=== PATIENT | female | born 1995 | race Hispanic/Latino ===

== ENCOUNTER 2017-10-08 09:10 | Emergency (ER) | payer SELFPAY | END 2017-10-08 09:35 | disposition home or self-care (01) | LOC: EDH 09:10 | DX: J06.9 Acute upper respiratory infection, unspecified (principal); K21.9 Gastro-esophageal reflux disease without esophagitis; Z87.891 Personal history of nicotine dependence | CPT/HCPCS: 99281 ==

== ENCOUNTER 2019-01-10 11:04 | Emergency (ER) | payer SELFPAY ==
[2019-01-10] MEDS ORDERED: ONDANSETRON ODT 4 MG TAB ONE (12:02)
[2019-01-10] MEDS ORDERED: LIDOCAINE HCL-MPF 1% 2ML VIAL ONE (12:02)
[2019-01-10] MEDS ORDERED: CEFTRIAXONE SODIUM 1 GM ONE (12:02)
[2019-01-10 12:28] LABS: RAPID GROUP A STREP NEGATIVE (NEGATIVE)
== END 2019-01-10 13:36 | disposition home or self-care (01) ==
LOC: EDH 11:04
DX: J02.9 Acute pharyngitis, unspecified (principal); K21.9 Gastro-esophageal reflux disease without esophagitis; Z98.890 Other specified postprocedural states
CPT/HCPCS: 87804 ×2; 87880; 96372; 99284; J0696; J3490

== ENCOUNTER 2019-04-24 12:41 | Emergency (ER) | payer BC, OTHER ==
[2019-04-24] MEDS ORDERED: IBUPROFEN 600 MG TABLET ONE (13:50)
== END 2019-04-24 14:56 | disposition home or self-care (01) ==
LOC: EDH 12:41
DX: S93.491A Sprain of other ligament of right ankle, initial encounter (principal); J45.909 Unspecified asthma, uncomplicated; W10.8XXA Fall (on) (from) other stairs and steps, initial encounter; Y93.89 Activity, other specified; Y92.89 Other specified places as the place of occurrence of the external cause; Y99.8 Other external cause status
CPT/HCPCS: 73562; 73610

== ENCOUNTER 2019-08-20 18:38 | Emergency (ER) | payer BC | END 2019-08-20 19:00 | disposition home or self-care (01) | LOC: EDH 18:38 | DX: R50.9 Fever, unspecified (principal); R05 Cough; R09.89 Other specified symptoms and signs involving the circulatory and respiratory systems; K21.9 Gastro-esophageal reflux disease without esophagitis; J45.909 Unspecified asthma, uncomplicated; F41.9 Anxiety disorder, unspecified | CPT/HCPCS: 99281 ==

== ENCOUNTER 2019-08-25 10:38 | Emergency (ER) | payer BC ==
[2019-08-25] MEDS ORDERED: KETOROLAC TROMETHAMINE 30MG/ML ONE (11:06)
== END 2019-08-25 12:34 | disposition home or self-care (01) ==
LOC: EDH 10:38
DX: S13.4XXA Sprain of ligaments of cervical spine, initial encounter (principal); S00.83XA Contusion of other part of head, initial encounter; S50.811A Abrasion of right forearm, initial encounter; F41.9 Anxiety disorder, unspecified; J45.909 Unspecified asthma, uncomplicated; K21.9 Gastro-esophageal reflux disease without esophagitis; Z72.0 Tobacco use; V49.49XA Driver injured in collision with other motor vehicles in traffic accident, initial encounter; Y93.89 Activity, other specified; Y92.488 Other paved roadways as the place of occurrence of the external cause; Y99.8 Other external cause status
CPT/HCPCS: 70450; 70486; 72125; 73090; 96374; 99285; J1885

== ENCOUNTER 2022-01-07 05:37 | Emergency (ER) | payer BC, OTHER ==
[~2022-01-07] VITALS: Ht 157.5 cm; Wt 113.9 kg
[2022-01-07 05:41] VITALS: BP 133/77
[2022-01-07] MEDS: IBUPROFEN 600 MG TABLET PO ONE (06:03)
== END 2022-01-07 06:33 | disposition home or self-care (01) ==
LOC: EDH 05:37
DX: S67.196A Crushing injury of right little finger, initial encounter (principal); W23.0XXA Caught, crushed, jammed, or pinched between moving objects, initial encounter; Z79.1 Long term (current) use of non-steroidal anti-inflammatories (NSAID); Y93.89 Activity, other specified; Y92.89 Other specified places as the place of occurrence of the external cause; Y99.8 Other external cause status
CPT/HCPCS: 73140